=== PATIENT | female | born 1990 | race Hispanic/Latino ===

== ENCOUNTER → 2020-07-15 09:42 | Outpatient (CLI) | payer OTHER, SELFPAY ==
[2020-07-15 10:25] LABS: COVID19 -Nasal RAPID Negative (Negative)
== END ==
PROVIDERS: Family Provider Specialist; Visit Provider Nurse Practitioner Family
DX: Z20.822 Contact with and (suspected) exposure to COVID-19 (principal)
CPT/HCPCS: 87635

== ENCOUNTER → 2020-07-30 14:19 | Outpatient (CLI) | payer OTHER, SELFPAY ==
[2020-07-30 15:40] LABS: COVID19 -Nasal RAPID Negative (Negative)
== END ==
PROVIDERS: Family Provider Specialist; Visit Provider Specialist
DX: Z01.812 Encounter for preprocedural laboratory examination (principal); Z20.822 Contact with and (suspected) exposure to COVID-19
CPT/HCPCS: 87635

== ENCOUNTER 2020-07-31 06:38 | Day surgery (SDC) | payer OTHER, SELFPAY ==
[2020-07-31 07:09] VITALS: BP 126/83; PULSE 88; RESP 16; TEMP 36.6; O2SAT 99
[2020-07-31] MEDS: LACTATED RINGERS 1,000 ML 100 ML IV (07:18)
--- NOTE | 2020-07-31 07:22 | PM.PREOP ---
Pre-operative Note COVID-19 COVID-19 status: Negative Result date/Date tested (Pos, Neg/Pending): 07/30/20 Interval Note History & Physical reviewed/Exam performed by Physician: Yes Changes to H&P: No
--- NOTE | 2020-07-31 08:05 | SUR.OPER ---
Lithotomy on padded OR bed, head on pillow, arms secured on padded arm boards at <90 degrees abduction. Legs secured in padded yellow fins stirrups.
[2020-07-31 08:16] VITALS: BP 157/104; PULSE 100; RESP 16; TEMP 36.4; O2SAT 97
--- NOTE | 2020-07-31 08:20 | P.OP_ITS ---
Operative Date/Time/Diagnoses Date of procedure: 07/31/20 Time of procedure: 08:21 Pre-op diagnosis: Sterilization, removal ParaGard IUD Post-op diagnosis: same Procedure & Clinicians Procedure: Removal of ParaGard IUD and laparoscopic tubal ligation by cauterization Same procedure as scheduled: Yes Indications: Sterilization and removal of IUD Surgeon: Babita Arredondo Click Yes if Unassisted: Yes Anesthesia Type: General Operative Notes Findings: Normal external genitalia, vagina, cervix with ParaGard IUD removed without difficulty by grasping strings. Normal intra-abdominal contents. Hakeem gn appearing left ovarian cyst, normal right ovary uterus and fallopian tubes. No internal hernias. No endometriosis. Closure Type: primary Specimen(s): none sent Estimated Blood Loss (mL): 1 Blood products transfused: none Procedure in detail: Patient was brought to the operating room where she underwent general anesthesia. She was placed in low yellowfin stirrups and prepped and draped in usual sterile fashion. No antibiotics were indicated. Pulsatile stockings were in place and functional. Warming was with blankets. A check system was reviewed with the staff in the room prior to beginning the case. Speculum was placed in the vagina and the IUD strings were grasped and the IUD removed without difficulty. The area of the incisions were injected with half percent Marcaine with epinephrine. An incision was made in the umbilicus with a scalpel and the Verres needle placed in the abdomen. Confirmation of correct placement of the needle was performed by withdrawing on the syringe and then allowing fluid to fall freely through the needle. The abdomen was insufflated to 4 L of CO2. A 5 mm trocar was placed under direct visualization. A 2nd 5 mm trochars were placed in the right lower quadrant under direct visualization after incising the skin. There did not appear to be any damage with placement of the trocars. The right fallopian tube was grasped and cauterized 3 with of the grasper and cut and cut in the middle with the PK generator. Same procedure was performed on the left fallopian tube. Adequate hemostasis was noted. The CO2 was allowed to escape from the abdomen. The trochars were removed. Skin was closed with 4-0 monocryl. The patient went to recovery room in good condition. Complications: none Post-operative Condition: stable Disposition: same day surgery Plan for aftercare: Home when awake and stable
[2020-07-31 08:21] VITALS: BP 152/100; PULSE 96; RESP 11; O2SAT 98
[2020-07-31] MEDS: BUPIVACAINE 0.5% W/ EPI (PF) 30 ML VIAL INJ (08:21)
[2020-07-31 08:28] VITALS: BP 141/89; PULSE 98; RESP 11; O2SAT 96
[2020-07-31] MEDS: KETOROLAC 30 MG/ML VIAL IV (08:34)
[2020-07-31 08:35] VITALS: BP 131/88; PULSE 93; RESP 12; O2SAT 98
[2020-07-31 09:00] VITALS: BP 135/88; PULSE 90; RESP 17; TEMP 36.4; O2SAT 97
== END 2020-07-31 09:12 | disposition home or self-care (01) ==
PROVIDERS: Family Provider Specialist; Referring Provider Specialist; Visit Provider Specialist
PROC: (CPT 58671; principal; 2020-07-31 07:45)
DX: Z30.2 Encounter for sterilization (principal); Z30.432 Encounter for removal of intrauterine contraceptive device; F17.210 Nicotine dependence, cigarettes, uncomplicated; D64.9 Anemia, unspecified; J45.909 Unspecified asthma, uncomplicated
CPT/HCPCS: 58670; 58301; 81025; J0330; J1100; J1885; J2405; J2704; J3010

== ENCOUNTER → 2023-11-21 11:11 | Outpatient (CLI) | payer OTHER, SELFPAY ==
--- NOTE | 2023-11-21 11:12 | DI.RAD.S_ITS ---
PROCEDURE: XR FOOT LT MIN 3V INDICATIONS: Heel pain TECHNIQUE: 3 views of the foot were acquired. COMPARISON: None. FINDINGS: Bones: No fractures or dislocations. No suspicious bony lesions. Calcaneal bone spur. Soft tissues: No tibiotalar joint effusion. Achilles tendon appears normal. IMPRESSION: No acute bony abnormality. Dictated by: Janna Malik MD, PhD on 11/21/2023 at 11:29 Approved by: Janna Malik MD, PhD on 11/21/2023 at 11:30
== END ==
PROVIDERS: Family Provider Specialist; Referring Provider Physician Assistant Surgical; Visit Provider Physician Assistant Surgical
DX: M77.32 Calcaneal spur, left foot (principal); M79.672 Pain in left foot
CPT/HCPCS: 73630

== ENCOUNTER → 2024-02-13 15:50 | Outpatient (CLI) | payer OTHER, SELFPAY ==
[2024-02-13 16:22] LABS: Hemoglobin 13.6 g/dL (12.0-16.0); Mean Corpuscular Hemoglobin 35.7 PG (26-34); Platelet Count 111 X10^3/uL (150-400); Red Blood Cell Count 3.81 X10^6/uL (4.0-5.2); Red Cell Distribution Width 14.9 % (11.6-14.8); White Blood Cell Count 3.7 X10^3/uL (4.5-11.0)
[2024-02-13 16:56] LABS: Alanine Aminotransferase 99 IU/L (<35); Albumin 4.6 g/dL (3.5-5.0); Albumin Globulin Ratio 1.4 (1.0-2.8); Alkaline Phosphatase 72 U/L (38-126); Aspartate Aminotransferase 121 IU/L (14-36); BUN Creatinine Ratio 18.6 (6-22); Bilirubin Total 0.9 mg/dL (0.2-1.3); Blood Urea Nitrogen 11 mg/dL (7-17); Calcium 9.2 mg/dL (8.4-10.2); Carbon Dioxide 23 mmol/L (22-32); Chloride 104 mmol/L (98-107); Cholesterol 318 mg/dL (140-199); Estimated Glomerular Filt Rate > 60 mL/min (>60); Globulin 3.2 g/dL (1.7-4.1); Glucose 87 mg/dL (70-100); HEMOLYSIS < 15 (0-50); Potassium 3.9 mmol/L (3.4-5.1); Sodium 139 mmol/L (137-145); Total Protein 7.8 g/dL (6.3-8.2); Triglycerides 94 mg/dL (35-150)
[2024-02-13 17:02] LABS: Hemoglobin A1C% w Est Avg Glu 4.6 % (4.0-6.0)
[2024-02-13 17:06] LABS: HDL Cholesterol > 220 mg/dL (40-60); LDL Cholesterol Calculated 79 mg/dL (<100)
[2024-02-13 17:34] LABS: TSH w/ Reflex to FT4 1.59 uIU/mL (0.47-4.68)
== END ==
PROVIDERS: Family Provider Specialist; PCP Family Medicine; Referring Provider Family Medicine; Visit Provider Family Medicine
DX: Z00.00 Encounter for general adult medical examination without abnormal findings (principal); F10.10 Alcohol abuse, uncomplicated; F17.200 Nicotine dependence, unspecified, uncomplicated; N92.6 Irregular menstruation, unspecified
CPT/HCPCS: 36415; 80053; 80061; 83036; 84443; 85027

== ENCOUNTER 2024-03-11 14:17 | Inpatient (IN) | payer OTHER, SELFPAY ==
[2024-03-11] VITALS (23 sets, daily range): BP systolic 133–158; BP diastolic 80–96; PULSE 80–129; RESP 12–24; TEMP 36.4–37.1; O2SAT 95–98; BMI 25.7; BMI 26.3
--- NOTE | 2024-03-11 14:23 | ED_ITS ---
HPI - Seizure General Chief Complaint: Seizure Stated Complaint: + seizure/ ? etoh withdrawl Time Seen by Provider: 03/11/24 14:18 History of Present Illness HPI Narrative: Patient is a 33-year-old female with past medical history of alcohol abuse, comes into the ED via EMS from work for evaluation of witnessed tonic-clonic withdrawal seizures. According to EMS and patient she has been on medical leave for the past 3 months states that she has been drinking alcohol including but not limited to beer wine vodka daily for the past 3 months, states that she went back to work today last drink was yesterday. EMS states that she had a witnessed generalized tonic-clonic seizure lasting 2 minutes did receive 5 mg of IM Versed which stopped the seizure. Did give an additional 2.5 mg of IV Versed 30 minutes prior to arrival for withdrawal. At time of initial evaluation patient does appear postictal, however she is moving all 4 extremities spontaneously. Related Data Home Medications Medication Instructions Recorded Confirmed montelukast 10 mg tablet 10 mg PO DAILY 11/30/23 02/13/24 (Jas) Previous Rx's Medication Instructions Recorded albuterol sulfate 90 mcg/actuation 2 puff inhalation Q6H #8.5 grams 12/18/23 aerosol inhaler naltrexone 50 mg tablet 50 mg PO DAILY #30 tabs 03/05/24 Allergies Allergy/AdvReac Type Severity Reaction Status Date / Time No Known Drug Allergies Allergy Verified 02/13/24 15:01 Review of Systems Review of Systems ROS Unobtainable: Unobtainable due to mental status/LOC Patient History Medical History (Updated 03/05/24 @ 09:05 by José Miguel Anglin DO) Alcoholism Elevated LFTs Pancytopenia Depression (~2004) Anxiety (~2004) Scoliosis (~1999) Chronic back pain (~1999) Tobacco dependence Alcohol abuse Asthma, mild intermittent (~1991) Anemia Dichorionic diamniotic twin gestation Surgical History (Updated 01/05/24 @ 19:17 by Dayanna Sarabia) Anesthesia Cyst of breast (~2004) History of tubal ligation (~2021) Status post vacuum-assisted vaginal delivery Status post emergency section (~10/15/16) Family History (Updated 01/05/24 @ 19:23 by Dayanna Sarabia) Father Hypertension Hyperlipidemia Brother Mental health problem Grandmother History of heart disease Hyperlipidemia Hypertension Social History household members: significant other Smoking Status: Current every day smoker Smoking Status: Current every day smoker alcohol intake frequency: holidays/special occasions only Substance Use Type: does not use Exam Narrative Exam Narrative: General: Cooperative, comfortable, well-developed, not in acute distress HEENT: Normocephalic, atraumatic, PERRLA, normal sclera, eyelids normal, Neck: Active full range of motion, atraumatic Chest: Normal to inspection, negative crepitus, no overlying erythema ecchymosis Respiratory: Normal respiratory effort, not in acute respiratory distress, clear to auscultation bilaterally negative cough, wheeze, tachypnea, rhonchi, rales Cardiology: Regular rate rhythm negative gallop, murmur, rubs GI/: Normal to inspection, soft, nonrigid, no tenderness to palpation, exam deferred MSK: Full range of active range of motion of all 4 extremities, atraumatic Skin: No rashes lesions noted Neuro: Patient appearing postictal, is moving all 4 extremities spontaneously, she is able to tell me her name on exam but does appear tired Psych: Cooperative, negative suicidal or homicidal ideations Initial Vital Signs Initial Vital Signs: Vital Signs Pulse Rate 129 H 03/11/24 14:21 Pulse Oximetry 97 03/11/24 14:21 Course Orders Ordered: ED Orders 03/11/24 14:24 CT head/brain wo con Stat EKG-12 Lead Stat 03/11/24 14:27 Urine Drug Screen, Rapid Stat 03/11/24 14:30 CBC Auto Diff [Complete Blood Count AUTO DIFF] Stat CMP [Comprehensive Metabolic Panel] Stat ETOH [Ethanol (ETOH)] Stat Lactate (Lactic Acid) Stat MAG [Magnesium] Stat Phosphorous Stat Test Serum,Qual Stat 03/11/24 14:36 Consult to Dietitian, Adult Routine 03/11/24 15:14 Urinalysis and Microscopic Stat Lorazepam (Lorazepam 2 Mg/Ml Inj) 1 mg IV Q6HR PRN PRN Reason: Anxiety Last Admin: 03/11/24 14:43 Dose: 1 mg Documented By: KM Discontinued Medications Folic Acid (Folic Acid 1 Mg Tablet) 1 mg PO DAILY [facility] Folic Acid (Folic Acid 1 Mg Tablet) 1 mg PO DAILY ONE Stop: 03/11/24 14:43 Multivitamins (Multivitamin 1 Tablet) 1 tab PO DAILY [facility] Multivitamins (Multivitamin 1 Tablet) 1 tab PO DAILY ONE Stop: 03/11/24 14:43 Phenobarbital (Phenobarbital 65 Mg/Ml Vial) 130 mg IV NOW ONE Stop: 03/11/24 15:09 Last Admin: 03/11/24 15:20 Dose: 130 mg Thiamine HCl (Thiamine 100 Mg Tablet) 100 mg PO DAILY RUBEN Stop: 03/15/24 09:01 Thiamine HCl (Thiamine 100 Mg Tablet) 100 mg PO DAILY ONE Stop: 03/11/24 14:43 Vital Signs Vital signs: Vital Signs - 8 hr 03/11/24 14:21 03/11/24 14:22 03/11/24 14:28 Temperature 98.8 F Pulse Rate 129 H 124 H Respiratory Rate 22 Blood Pressure 143/85 H 152/91 H Pulse Oximetry 97 96 Oxygen Delivery Method Room Air 03/11/24 14:28 03/11/24 14:30 03/11/24 14:30 Temperature Pulse Rate 128 H 118 H Respiratory Rate 24 21 Blood Pressure 143/85 H Pulse Oximetry 96 95 Oxygen Delivery Method 03/11/24 14:45 03/11/24 14:46 03/11/24 14:46 Temperature Pulse Rate 111 H 115 H Respiratory Rate 19 Blood Pressure 147/89 H Pulse Oximetry 95 95 Oxygen Delivery Method 03/11/24 14:56 03/11/24 14:56 03/11/24 15:00 Temperature Pulse Rate 104 H 112 H Respiratory Rate Blood Pressure 138/82 Pulse Oximetry 95 95 Oxygen Delivery Method Room Air 03/11/24 15:00 03/11/24 15:15 03/11/24 15:15 Temperature Pulse Rate 107 H Respiratory Rate Blood Pressure 140/85 138/80 Pulse Oximetry 96 Oxygen Delivery Method Room Air MDM - Seizure Differential Diagnosis Differential diagnosis: Likely generalized seizure, new onset seizure and other (alcohol withdrawal seizure) Lab Data 03/11/24 14:30 03/11/24 14:30 Labs: Lab Results 03/11/24 Range/Units 14:30 WBC 4.7 (4.5-11.0) X10^3/uL RBC 3.62 L (4.0-5.2) X10^6/uL Hgb 13.0 (12.0-16.0) g/dL Hct 38.3 (36-46) % MCV 105.8 H (80-100) fL MCH 36.0 H (26-34) PG MCHC 34.0 (30-36) % RDW 13.7 (11.6-14.8) % Plt Count 91 L (150-400) X10^3/uL Neut % (Auto) 62.0 (50-75) % Lymph % (Auto) 26.7 (25-40) % [place] % (Auto) 9.7 (3-14) % Eos % (Auto) 0.7 L (2-4) % Baso % (Auto) 0.9 (0-2) % Neut # (Auto) 2900 (2254-0126) /uL Lymph # (Auto) 1200 (6762-8271) /uL [place] # (Auto) 500 (0-900) /uL Eos # (Auto) 0 (0-450) /uL Baso # (Auto) 0 (0-100) /uL Sodium 131 L (137-145) mmol/L Potassium 3.7 (3.4-5.1) mmol/L Chloride 98 (98-107) mmol/L Carbon Dioxide 13 L (22-32) mmol/L BUN 12 (7-17) mg/dL Creatinine 0.57 (0.52-1.04) mg/dL Estimated GFR > 60 (>60) mL/min BUN/Creatinine Ratio 21.1 (6-22) Glucose 192 H (70-100) mg/dL Lactate 9.6 H* (0.7-2.1) mmol/L Calcium 8.8 (8.4-10.2) mg/dL Phosphorus 3.1 (2.5-4.5) mg/dL Magnesium 1.3 L (1.6-2.3) mg/dL Total Bilirubin 1.2 (0.2-1.3) mg/dL AST 76 H (14-36) IU/L ALT 112 H (<35) IU/L Alkaline Phosphatase 62 (38-126) U/L Total Protein 7.7 (6.3-8.2) g/dL Albumin 4.7 (3.5-5.0) g/dL Globulin 3.0 (1.7-4.1) g/dL Albumin/Globulin Ratio 1.6 (1.0-2.8) Ethyl Alcohol < 10 ( - 10) mg/dL ECG Data Interpretation: EKG interpreted by ED physician shows tachycardia 116 beats per minute, QTC 489, normal axis nonspecific ST changes no STEMI MDM Narrative Medical decision making narrative: Patient 33-year-old female history of alcohol abuse hyperlipidemia brought in for witnessed tonic-clonic withdrawal seizures has been drinking significant amount of alcohol over the past 3 months stopped cold turkey yesterday when she went back to work. Had a witnessed tonic-clonic seizure lasting no more than 2 minutes by EMS was given IV and Versed 5 mg which caused cessation of the seizure. Was given additional 2.5 mg IV prior to arrival for withdrawal. Patient postictal here in the emergency department but no focal deficits. CT scan of the head does not show any acute findings. Patient will require admission to the hospital for detox/alcohol withdrawal given alcohol withdrawal seizure. 1512: Patient re-evaluated CIWA 13, will start patient on IV phenobarbital for alcohol withdrawal 1527: The patient's management plan was discussed Dr. Leonardo, who agrees to admit the patient to their service and assumes care of this patient at this time. Full admission orders will be placed by the primary team. Discharge Plan Departure Prescriptions: No Action montelukast [Singulair] 10 mg tablet 10 mg PO DAILY naltrexone 50 mg tablet 50 mg PO DAILY Qty: 30 11RF albuterol sulfate 90 mcg/actuation HFA aerosol inhaler 2 puff inhalation Q6H Qty: 8.5 11RF Referrals: José Miguel Anglin DO [Primary Care Provider] - Admit Date/Time: 03/11/24 15:25
--- NOTE | 2024-03-11 14:24 | EKG_ITS ---
[address] [address] Test Date: 2024-03-11 Pat Name: Janice Jang Department: [facility] Room: Gender: Female Internal Specialist: jabari : 1990 Requested By: Order Number: [id number] Reading MD: Gonzales Hernández Measurements Intervals Campbell Rate: 116 P: 58 VA: 142 QRS: 54 QRSD: 112 T: 47 QT: 352 QTc: 489 Interpretive Statements Sinus tachycardia Incomplete right bundle branch block Septal infarct , age undetermined Electronically Signed On 03-11-2024 20:42:22 PDT by Gonzales Hernández
--- NOTE | 2024-03-11 14:24 | DI.CT.S_ITS ---
PROCEDURE: CT HEAD/BRAIN WO CON INDICATIONS: seizure TECHNIQUE: Noncontrast 4.5 mm thick angled axial sections acquired from the foramen magnum to the vertex, with coronal and sagittal reformats. For radiation dose reduction, the following was used: automated exposure control, adjustment of mA and/or kV according to patient size. COMPARISON: None. FINDINGS: Image quality: Diagnostic. Moderate mucoperiosteal thickening of the paranasal sinuses predominantly in the bilateral sphenoid sinuses measuring up to 6 mm thickness no air-fluid level to suggest acute sinusitis. Nasal septum is bowed/curved towards the right. CSF spaces: Basal cisterns are patent. No extra-axial fluid collections. Ventricles are normal in size and shape. Brain: No midline shift. No intracranial masses or hemorrhage. Dailey-white matter interface is normal. No CT evidence of intracranial hemorrhage, mass lesion, mass effect, acute or subacute infarct. IMPRESSION: Moderate mucoperiosteal thickening of the bilateral sphenoid sinuses. Nasal septum is bowed/curved towards the right. No CT evidence of intracranial hemorrhage. If symptoms persist or worsen, or there is high clinical suspicion of acute abnormality, MR brain could be performed Dictated by: Guilherme Minaya M.D. on 03/11/2024 at 15:07 Approved by: Guilherme Minaya M.D. on 03/11/2024 at 15:12
[2024-03-11 14:37] LABS: Add Manual Diff / Slide Review NO; Basophils Absolute Auto 0 /uL (0-100); Basophils Percent Auto 0.9 % (0-2); Eosinophils Absolute Auto 0 /uL (0-450); Eosinophils Percent Auto 0.7 % (2-4); Hematocrit 38.3 % (36-46); Lymphocytes Absolute Auto 1200 /uL (1100-4500); Lymphocytes Percent Auto 26.7 % (25-40); Mean Corpuscular Volume 105.8 fL (80-100); Monocytes Absolute Auto 500 /uL (0-900); Monocytes Percent Auto 9.7 % (3-14); Neutrophils Absolute Auto 2900 /uL (1500-7000); Platelet Count 91 X10^3/uL (150-400); Red Blood Cell Count 3.62 X10^6/uL (4.0-5.2); Red Cell Distribution Width 13.7 % (11.6-14.8); White Blood Cell Count 4.7 X10^3/uL (4.5-11.0)
[2024-03-11] MEDS: LORazepam 2 MG/ML INJ 1 MG IV (14:43)
[2024-03-11 14:56] LABS: Ethanol (ETOH) < 10 mg/dL
[2024-03-11 14:57] LABS: Alanine Aminotransferase 112 IU/L (<35); Albumin 4.7 g/dL (3.5-5.0); Albumin Globulin Ratio 1.6 (1.0-2.8); Alkaline Phosphatase 62 U/L (38-126); Aspartate Aminotransferase 76 IU/L (14-36); BUN Creatinine Ratio 21.1 (6-22); Bilirubin Total 1.2 mg/dL (0.2-1.3); Blood Urea Nitrogen 12 mg/dL (7-17); Calcium 8.8 mg/dL (8.4-10.2); Carbon Dioxide 13 mmol/L (22-32); Chloride 98 mmol/L (98-107); Estimated Glomerular Filt Rate > 60 mL/min (>60); Glucose 192 mg/dL (70-100); HEMOLYSIS < 15 (0-50); Lactate (Lactic Acid) 9.6 mmol/L (0.7-2.1); Magnesium 1.3 mg/dL (1.6-2.3); Phosphorous 3.1 mg/dL (2.5-4.5); Potassium 3.7 mmol/L (3.4-5.1); Sodium 131 mmol/L (137-145); Total Protein 7.7 g/dL (6.3-8.2)
[2024-03-11] MEDS: PHENobarbital 65 MG/ML VIAL 130 MG IV (15:20)
[2024-03-11 15:32] LABS: Pregnancy Test Serum,Qual Negative (Negative)
[2024-03-11 16:09] LABS: Reflexed Lactate in 2 Hours Y
[2024-03-11 16:39] LABS: Lactate 2HR (Lactic Acid Rflx) 1.2 mmol/L (0.7-2.1)
--- NOTE | 2024-03-11 17:01 | PC.NURSE ---
This RN checks on patient and notices a contusion on her RIGHT medial foot near the ankle. Pt states it's from my work boots and that they are new and she is breaking them in.
[2024-03-11] MEDS: dexmedeTOMIDine in 0.9 % NaCL 400 MCG/100 ML PLAST..BAG 6.577 MCG IV (17:49)
[2024-03-11] MEDS: SODIUM CHLORIDE 0.9% 1,000 ML 100 ML IV (17:56)
[2024-03-11] MEDS: MAGNESIUM SULFATE 2 GM/50 ML PIGGYBACK IV (17:57)
--- NOTE | 2024-03-11 18:30 | P.HP_ITS ---
History of Present Illness History of Present Illness Date Patient Seen: 03/11/24 Time Patient Seen: 18:20 Chief complaint: + seizure/ ? etoh withdrawl Narrative: This is a 33-year-old female with a past medical history of mild persistent asthma, chronic alcohol use who presented after a witnessed seizure at work. She had recently increased her alcohol intake while being at home for the last 3 months or so. She reports about a 5th of liquor per day for the past 3 months. She then went back to work and stopped drinking. She denies any prior alcohol withdrawal symptoms in the past, and has never been admitted before. She denies any prior seizure history. Remember much of the events at work, but does not remember a 2nd seizure that occurred in the ambulance. Seizure was abated with Versed according to EMS, and the ER provider. Provider also give a dose of phenobarbital, with still elevated CIWA scores. She was admitted for further the ICU. Upon arrival, the patient was still tremulous, and was recommended to start on Precedex infusion. She is awake and alert with no reports of hallucinations. [facility] Medical History Alcoholism Elevated LFTs Pancytopenia Depression (~2004) Anxiety (~2004) Scoliosis (~1999) Chronic back pain (~1999) Tobacco dependence Alcohol abuse Asthma, mild intermittent (~1991) Anemia Dichorionic diamniotic twin gestation Surgical History Anesthesia Cyst of breast (~2004) History of tubal ligation (~2021) Status post vacuum-assisted vaginal delivery Status post emergency section (~10/15/16) Family History Father Hypertension Hyperlipidemia Brother Mental health problem Grandmother History of heart disease Hyperlipidemia Hypertension Social History household members: significant other Smoking Status: Current every day smoker alcohol intake: current Meds Home Medications and Allergies Home Medications Medication Instructions Recorded Confirmed Type montelukast 10 mg tablet 10 mg PO DAILY 11/30/23 03/11/24 History (Jas) albuterol sulfate 90 mcg/actuation 2 puff inhalation Q6H #8.5 grams 12/18/23 03/11/24 Rx aerosol inhaler naltrexone 50 mg tablet 50 mg PO DAILY #30 tabs 03/05/24 03/11/24 Rx Allergies Allergy/AdvReac Type Severity Reaction Status Date / Time No Known Drug Allergies Allergy Verified 03/11/24 15:50 Review of Systems Review of Systems Narrative: All other systems reviewed with the patient and are negative unless otherwise stated. Exam Vital Signs (past 8 hours): - 03/11/24 14:21 03/11/24 14:22 03/11/24 14:28 Temperature 98.8 F Pulse Rate 129 H 124 H Respiratory Rate 22 Blood Pressure 143/85 H 152/91 H Blood Pressure [Left Arm] Pulse Oximetry 97 96 Oxygen Delivery Method Room Air 03/11/24 14:28 03/11/24 14:30 03/11/24 14:30 Temperature Pulse Rate 128 H 118 H Respiratory Rate 24 21 Blood Pressure 143/85 H Blood Pressure [Left Arm] Pulse Oximetry 96 95 Oxygen Delivery Method 03/11/24 14:45 03/11/24 14:46 03/11/24 14:46 Temperature Pulse Rate 111 H 115 H Respiratory Rate 19 Blood Pressure 147/89 H Blood Pressure [Left Arm] Pulse Oximetry 95 95 Oxygen Delivery Method 03/11/24 14:56 03/11/24 14:56 03/11/24 15:00 Temperature Pulse Rate 104 H 112 H Respiratory Rate Blood Pressure 138/82 Blood Pressure [Left Arm] Pulse Oximetry 95 95 Oxygen Delivery Method Room Air 03/11/24 15:00 03/11/24 15:15 03/11/24 15:15 Temperature Pulse Rate 107 H Respiratory Rate Blood Pressure 140/85 138/80 Blood Pressure [Left Arm] Pulse Oximetry 96 Oxygen Delivery Method Room Air 03/11/24 15:29 03/11/24 15:30 03/11/24 15:30 Temperature Pulse Rate 102 H 103 H Respiratory Rate 20 Blood Pressure 141/85 H Blood Pressure [Left Arm] 138/80 Pulse Oximetry 96 96 Oxygen Delivery Method Room Air 03/11/24 15:45 03/11/24 15:45 03/11/24 16:00 Temperature Pulse Rate 110 H Respiratory Rate 13 Blood Pressure 140/86 139/85 Blood Pressure [Left Arm] Pulse Oximetry 96 Oxygen Delivery Method Room Air 03/11/24 16:00 03/11/24 16:15 03/11/24 16:15 Temperature Pulse Rate 99 H 111 H Respiratory Rate 13 14 Blood Pressure 143/88 H Blood Pressure [Left Arm] Pulse Oximetry 97 98 Oxygen Delivery Method Room Air 03/11/24 16:30 03/11/24 16:30 03/11/24 16:45 Temperature Pulse Rate 106 H Respiratory Rate 17 Blood Pressure 149/94 H 158/96 H Blood Pressure [Left Arm] Pulse Oximetry 97 Oxygen Delivery Method 03/11/24 16:45 03/11/24 17:22 03/11/24 17:25 Temperature Pulse Rate 99 H 106 H 98 H Respiratory Rate 14 16 Blood Pressure Blood Pressure [Left Arm] Pulse Oximetry 97 97 97 Oxygen Delivery Method Room Air 03/11/24 17:25 03/11/24 18:20 Temperature Pulse Rate Respiratory Rate Blood Pressure 154/92 H Blood Pressure [Left Arm] Pulse Oximetry Oxygen Delivery Method Room Air Oxygen Delivery Method Room Air Narrative Exam Narrative: General:? Patient is well developed and well nourished, in no distress at this time. HEENT:? Normocephalic, atraumatic, extraocular muscles intact, oral pharynx is clear and mucous membranes are moist. Neck: supple and symmetric, trachea is midline, no cervical adenopathy. Chest:? Normal AP diameter and contour without kyphoscoliosis, no tachypnea, equal chest rise bilaterally. Lungs:? CTA b/l no wheezing rhonchi or rales. Cardio:? Tachycardic with regular rhythm, no murmurs, rubs, or gallops Abdomen: S NT ND. Musculoskeletal:? Muscle strength and tone are equal within normal limits, no deformity. Extremities: No edema or joint effusions. No cyanosis or clubbing. Skin:? Pale,? Warm to touch,dry and intact without rashes, ulcerations or petechiae.? Neuro:? Alert and orientated x3,?no focal deficits, mild tremulousness and tongue fasciculations Psych:? Patient has a well-kept appearance, appropriate affect, mental status attitude thought context and judgment are appropriate for age. Objective ECG Impression: Sinus tachycardia, without evidence of acute ischemia as interpreted by me. Labs 03/11/24 14:30 03/11/24 14:30 Labs: Laboratory Results - last 24 hr 03/11/24 03/11/24 14:30 16:20 WBC 4.7 RBC 3.62 L Hgb 13.0 Hct 38.3 MCV 105.8 H MCH 36.0 H MCHC 34.0 RDW 13.7 Plt Count 91 L Neut % (Auto) 62.0 Lymph % (Auto) 26.7 [place] % (Auto) 9.7 Eos % (Auto) 0.7 L Baso % (Auto) 0.9 Neut # (Auto) 2900 Lymph # (Auto) 1200 [place] # (Auto) 500 Eos # (Auto) 0 Baso # (Auto) 0 Sodium 131 L Potassium 3.7 Chloride 98 Carbon Dioxide 13 L BUN 12 Creatinine 0.57 Estimated GFR > 60 BUN/Creatinine Ratio 21.1 Glucose 192 H Lactate 9.6 H* 1.2 Calcium 8.8 Phosphorus 3.1 Magnesium 1.3 L Total Bilirubin 1.2 AST 76 H ALT 112 H Alkaline Phosphatase 62 Total Protein 7.7 Albumin 4.7 Globulin 3.0 Albumin/Globulin Ratio 1.6 Serum , Qual Negative Ethyl Alcohol < 10 Assessment & Plan Assessment & Plan narrative: 1. Severe alcohol withdrawal with seizure - alcohol withdrawal seizure, initial lactate > 9 now resolved. Fairly severe withdrawal given seizure and this happening within 24 hours of cessation of EtOH. - no prior history of seizure. CT head unremarkable. - alcohol level negative on admit, but has high EtOH use recently - start precedex infusion, 50 mg TID librium, and continue ativan per [facility] protocol. - telemetry - MVI, Folate, Thiamine - seizure precautions ordered. 2. Thrombocytopenia, chronic - acute on chronic, related to chronic Etoh use. No current bleeding, will continue to monitor. 3. Hyponatremia - related to EtOH use, continue to trend with BMP 4. Hypomagnesemia - Continue to follow, repleted with IV mag today. 5. Transaminitis - likely related to EtOH, though not typically in 2:1 fashion. Will add hepatitis serologies. Consider RUQ ultrasound if not improving. 6. Asymptomatic bacteruria - positive UA, patient denies symptoms. Will not treat at this time unless symptoms develop. Code: Full, surrogate is patient's fiancee DVT: Lovenox daily I have utilized all available immediate resources to obtain, update, or review the patient's current medications. Dispo: patient admitted under inpatient status to ICU on phenobarb drip. Likely discharge home after social work evaluation and acute management. Additional history obtained via discussions with the ER provider. These discussions contributed to the creation of the above assessment and plan. I have reviewed patient's presenting documentation, labs, and imaging personally. I spent 35 minutes providing critical care management this patient. This excludes time spent in performing separately billed procedures. Time-Based Coding :: [TOTAL MINUTES] spent with patient and on the chart (including review of chart, obtaining history, exam, reviewing outside data, placing orders, documenting exam and treatment plan, and counseling patient) on [DATE]. Quality VTE Deep Vein Thrombosis/Pulmonary Embolism Present on Admission: No
[2024-03-11 18:32] LABS: Ur Creatinine Normal (Normal); Ur Specific Gravity Normal (Normal); Urine pH Normal (Normal)
[2024-03-11 18:33] LABS: UR Morphine/Opiate cutoff 300 Negative (Negative); Urine Amphetamines Negative (Negative); Urine Barbiturates Positive (Negative); Urine Benzodiazepines Positive (Negative); Urine Cocaine Negative (Negative); Urine MDMA Negative (Negative); Urine Methadone Negative (Negative); Urine Methamphetamines Negative (Negative); Urine Oxycodone Negative (Negative); Urine Phencyclidine Negative (Negative); Urine Tetrahydrocannabinol Negative (Negative); Urine Tricyclic Antidepressant Negative (Negative)
--- NOTE | 2024-03-11 18:38 | PC.NURSE ---
Admit Note Patient to room 228 from ER at 1725. 2 person assist to stand and pivot to bed, very unsteady on feet with tremors to all extremities. CIWA 5. Alert and oriented x4. Oriented to room and to bed/tv/call light controls. Seizure pads in place and suction set up at bedside. Pt able to relay events up to ambulance transport, does not remember having seizure in ambulance. Laceration to tongue, bruising to right medial ankle, left arm. Abrasions to left arm. RA with SpO2 upper 90s. SR in the upper 90s. Bed alarm is on. Precedex gtt infusing per MD order, currently at 0.4 mcg/kg/hr. Call light within reach.
[2024-03-11 18:39] LABS: Appearance Urine UA CLEAR; Bilirubin Urine UA NEGATIVE (NEGATIVE); Color Urine UA YELLOW; Glucose Urine UA NEGATIVE (Negative); Ketones Urine UA 2+ (NEGATIVE); Leukocyte Esterase Urine UA TRACE (NEGATIVE); Nitrite Urine UA NEGATIVE (Negative); Occult Blood Urine UA TRACE-INTACT (Negative); Protein Urine UA 2+ (Negative)
[2024-03-11 18:41] LABS: pH Urine UA 6.5 (4.5-8.0)
[2024-03-11 18:45] LABS: Bacteria Urine Moderate (10-30); Culture Indicated Urine Specimen Cultured; Mucus Urine 1+ (Negative); RBC Urine 1-5/HPF (0-5/HPF); Squamous Epithelial Cell Urine 10-30 /HPF (0-5/HPF); Urine Volume 10mL (spun); WBC Urine 5-10/HPF (0-5/HPF)
[2024-03-11 19:28] LABS: MRSA (Nasal) PCR NOT DETECTED (Not Detect)
[2024-03-11] MEDS: chlordiazePOXIDE 25 MG CAPSULE 50 MG PO (22:17)
[2024-03-12] VITALS (29 sets, daily range): BP systolic 117–160; BP diastolic 76–105; PULSE 66–112; RESP 10–48; TEMP 36.3–36.7; O2SAT 96–99
[2024-03-12 04:49] LABS: Add Manual Diff / Slide Review NO; Basophils Absolute Auto 0 /uL (0-100); Basophils Percent Auto 1.2 % (0-2); Eosinophils Absolute Auto 100 /uL (0-450); Eosinophils Percent Auto 2.1 % (2-4); Hematocrit 38.4 % (36-46); Hemoglobin 13.1 g/dL (12.0-16.0); Lymphocytes Absolute Auto 700 /uL (1100-4500); Lymphocytes Percent Auto 18.5 % (25-40); Mean Corpuscular HGB Conc 34.2 % (30-36); Mean Corpuscular Hemoglobin 35.6 PG (26-34); Mean Corpuscular Volume 104.1 fL (80-100); Monocytes Absolute Auto 400 /uL (0-900); Monocytes Percent Auto 10.9 % (3-14); Neutrophils Absolute Auto 2700 /uL (1500-7000); Neutrophils Percent Auto 67.3 % (50-75); Platelet Count 83 X10^3/uL (150-400); Red Blood Cell Count 3.69 X10^6/uL (4.0-5.2); Red Cell Distribution Width 13.6 % (11.6-14.8)
[2024-03-12] MEDS: dexmedeTOMIDine in 0.9 % NaCL 400 MCG/100 ML PLAST..BAG 6.577 MCG IV (05:04)
[2024-03-12 05:07] LABS: Alanine Aminotransferase 47 IU/L (<35); Albumin Globulin Ratio 1.4 (1.0-2.8); Alkaline Phosphatase 55 U/L (38-126); Aspartate Aminotransferase 65 IU/L (14-36); BUN Creatinine Ratio 20.9 (6-22); Bilirubin Total 1.5 mg/dL (0.2-1.3); Blood Urea Nitrogen 9 mg/dL (7-17); Calcium 8.7 mg/dL (8.4-10.2); Carbon Dioxide 22 mmol/L (22-32); Chloride 99 mmol/L (98-107); Estimated Glomerular Filt Rate > 60 mL/min (>60); Globulin 2.9 g/dL (1.7-4.1); Glucose 98 mg/dL (70-100); HEMOLYSIS < 15 (0-50); Magnesium 2.1 mg/dL (1.6-2.3); Potassium 3.4 mmol/L (3.4-5.1); Sodium 128 mmol/L (137-145); Total Protein 6.9 g/dL (6.3-8.2)
[2024-03-12 05:42] LABS: Hepatitis B Surface Antigen NEGATIVE s/c (NEGATIVE)
[2024-03-12 06:03] LABS: Hep C Virus Ab w/Reflex Quant NEGATIVE s/c (NEGATIVE)
[2024-03-12] MEDS: FOLIC ACID 1 MG TABLET PO (08:31)
[2024-03-12] MEDS: chlordiazePOXIDE 25 MG CAPSULE 50 MG PO ×3 (08:31→20:32)
[2024-03-12] MEDS: ENOXAPARIN 40 MG/0.4 ML SYRINGE SUBCUT (08:31)
[2024-03-12] MEDS: MULTIVITAMIN 1 TABLET 1 TAB PO (08:31)
[2024-03-12] MEDS: SODIUM CHLORIDE 0.9% FLUSH 10 ML IV ×2 (08:32→20:33)
[2024-03-12] MEDS: THIAMINE 100 MG TABLET PO (08:32)
[2024-03-12] MEDS: SODIUM CHLORIDE 0.9% 1,000 ML 125 ML IV (08:54)
--- NOTE | 2024-03-12 15:05 | PM.PN.1 ---
Subjective Subjective Interval history: 33 F admitted with EtOH withdrawal seizure, stable today on precedex and librium. Mild tremulousness today, tolerating a diet. Exam Vital Signs (past 8 hours): - 03/12/24 08:00 Oxygen Delivery Method Room Air Oxygen Delivery Method Room Air Oxygen Flow Rate 0 Narrative Exam Narrative: General:? Patient is well developed and well nourished, in no distress at this time. HEENT:? Normocephalic, atraumatic, extraocular muscles intact, oral pharynx is clear and mucous membranes are moist. Neck: supple and symmetric, trachea is midline, no cervical adenopathy. Chest:? Normal AP diameter and contour without kyphoscoliosis, no tachypnea, equal chest rise bilaterally. Lungs:? CTA b/l no wheezing rhonchi or rales. Cardio:? Tachycardic with regular rhythm, no murmurs, rubs, or gallops Abdomen: S NT ND. Musculoskeletal:? Muscle strength and tone are equal within normal limits, no deformity. Extremities: No edema or joint effusions. No cyanosis or clubbing. Skin:? Pale,? Warm to touch,dry and intact without rashes, ulcerations or petechiae.? Neuro:? Alert and orientated x3,?no focal deficits, mild tremulousness and tongue fasciculations Psych:? Patient has a well-kept appearance, appropriate affect, mental status attitude thought context and judgment are appropriate for age. Objective Labs 03/12/24 04:00 03/12/24 04:00 Labs: Laboratory Results - last 24 hr 03/11/24 03/11/24 03/11/24 14:30 16:20 17:48 WBC RBC Hgb Hct MCV MCH MCHC RDW Plt Count Neut % (Auto) Lymph % (Auto) [place] % (Auto) Eos % (Auto) Baso % (Auto) Neut # (Auto) Lymph # (Auto) [place] # (Auto) Eos # (Auto) Baso # (Auto) Sodium Potassium Chloride Carbon Dioxide BUN Creatinine Estimated GFR BUN/Creatinine Ratio Glucose Lactate 1.2 Calcium Magnesium Total Bilirubin AST ALT Alkaline Phosphatase Total Protein Albumin Globulin Albumin/Globulin Ratio Serum , Qual Negative Urine Color Urine Appearance Urine pH Ur Specific [place] Urine Protein Urine Glucose (UA) Urine Ketones Urine Occult Blood Urine Nitrate Urine Bilirubin Urine Urobilinogen Ur Leukocyte Esterase Urine RBC Urine WBC Ur Squamous Epith Cells Urine Bacteria Urine Mucus Ur Culture Indicated? Vol Urine Centrifuged Nasal Screen MRSA (PCR) Not detected U Opiates 300ng/mL cut Ur Oxycodone Screen Urine Methadone Screen Ur Barbiturates Screen U Tricyclic Antidepress Ur Phencyclidine Scrn Ur Amphetamines Screen U Methamphetamines Scrn Ur MDMA Scrn (Ecstasy) U Benzodiazepines Scrn Urine Cocaine Screen U Marijuana (THC) Screen Urine Specific [place] Ur Creatinine Hep Bs Antigen Hepatitis C Antibody 03/11/24 03/11/24 03/12/24 18:14 18:14 04:00 WBC 4.0 L RBC 3.69 L Hgb 13.1 Hct 38.4 MCV 104.1 H MCH 35.6 H MCHC 34.2 RDW 13.6 Plt Count 83 L Neut % (Auto) 67.3 Lymph % (Auto) 18.5 L [place] % (Auto) 10.9 Eos % (Auto) 2.1 Baso % (Auto) 1.2 Neut # (Auto) 2700 Lymph # (Auto) 700 L [place] # (Auto) 400 Eos # (Auto) 100 Baso # (Auto) 0 Sodium 128 L Potassium 3.4 Chloride 99 Carbon Dioxide 22 BUN 9 Creatinine 0.43 L Estimated GFR > 60 BUN/Creatinine Ratio 20.9 Glucose 98 Lactate Calcium 8.7 Magnesium 2.1 Total Bilirubin 1.5 H AST 65 H ALT 47 H Alkaline Phosphatase 55 Total Protein 6.9 Albumin 4.0 Globulin 2.9 Albumin/Globulin Ratio 1.4 Serum , Qual Urine Color Yellow Urine Appearance Clear Urine pH 6.5 Normal Ur Specific [place] 1.020 Urine Protein 2+ H Urine Glucose (UA) Negative Urine Ketones 2+ H Urine Occult Blood Trace-intact Urine Nitrate Negative Urine Bilirubin Negative Urine Urobilinogen 2.0 H Ur Leukocyte Esterase Trace H Urine RBC 1-5/hpf Urine WBC 5-10/hpf H Ur Squamous Epith Cells 10-30 /hpf H Urine Bacteria Moderate (10-30) H Urine Mucus 1+ H Ur Culture Indicated? Specimen cultured Vol Urine Centrifuged 10ml (spun) Nasal Screen MRSA (PCR) U Opiates 300ng/mL cut Negative Ur Oxycodone Screen Negative Urine Methadone Screen Negative Ur Barbiturates Screen Positive H U Tricyclic Antidepress Negative Ur Phencyclidine Scrn Negative Ur Amphetamines Screen Negative U Methamphetamines Scrn Negative Ur MDMA Scrn (Ecstasy) Negative U Benzodiazepines Scrn Positive H Urine Cocaine Screen Negative U Marijuana (THC) Screen Negative Urine Specific [place] Normal Ur Creatinine Normal Hep Bs Antigen Negative Hepatitis C Antibody Negative PFS Medical History Alcoholism Elevated LFTs Pancytopenia Depression (~2004) Anxiety (~2004) Scoliosis (~1999) Chronic back pain (~1999) Tobacco dependence Alcohol abuse Asthma, mild intermittent (~1991) Anemia Dichorionic diamniotic twin gestation Surgical History Anesthesia Cyst of breast (~2004) History of tubal ligation (~2021) Status post vacuum-assisted vaginal delivery Status post emergency section (~10/15/16) Family History Father Hypertension Hyperlipidemia Brother Mental health problem Grandmother History of heart disease Hyperlipidemia Hypertension Social History household members: significant other Smoking Status: Current every day smoker alcohol intake: current Assessment & Plan Assessment & Plan narrative: 1. Severe alcohol withdrawal with seizure - alcohol withdrawal seizure, initial lactate > 9 now resolved. Severe withdrawal given seizure and this happening within 24 hours of cessation of EtOH. - no prior history of seizure. CT head unremarkable. - alcohol level negative on admit, but has high EtOH use recently - Continue librium 50 mg TID, and continue ativan per CIWA protocol. Will attempt to wean further from precedex. - continue telemetry, consider stopping once precedex is off. - MVI, Folate, Thiamine - seizure precautions ordered. 2. Thrombocytopenia, chronic - acute on chronic, related to chronic Etoh use. No current bleeding, will continue to monitor. 3. Hyponatremia - related to EtOH use, continue to trend with BMP 4. Hypomagnesemia - Continue to follow, repleted with IV mag today. 5. Transaminitis - likely related to EtOH, though not typically in 2:1 fashion. Hepatitis serologies are negative. Will order RUQ as t-bili is slightly trending up at 1.5 today. No abdominal pain. 6. Asymptomatic bacteruria - positive UA, patient denies symptoms. Will not treat at this time unless symptoms develop. Code: Full, surrogate is patient's fiancee DVT: Lovenox daily I have utilized all available immediate resources to obtain, update, or review the patient's current medications. Dispo: patient admitted under inpatient status to ICU on precedex drip. Likely discharge home after social work evaluation and acute management. Additional history obtained via discussions with the ICU bedside RN. These discussions contributed to the creation of the above assessment and plan. I have reviewed patient's presenting documentation, labs, and imaging personally. I spent 32 minutes providing critical care management this patient. This excludes time spent in performing separately billed procedures. Time-Based Coding :: [TOTAL MINUTES] spent with patient and on the chart (including review of chart, obtaining history, exam, reviewing outside data, placing orders, documenting exam and treatment plan, and counseling patient) on [DATE]. Quality VTE Deep Vein Thrombosis/Pulmonary Embolism Present on Admission: No
--- NOTE | 2024-03-12 15:08 | DI.US.S_ITS ---
PROCEDURE: US ABDOMEN LIMITED INDICATIONS: EtOH , RISING BILIRUBIN, AST/ALT. ASSESS LIVER/SPLEEN TECHNIQUE: Real-time scanning was performed of the abdominal and retroperitoneal organs, with image documentation. COMPARISON: None. FINDINGS: Moderate diffuse increased echogenicity of the liver commonly hepatic steatosis or other intrinsic hepatic disease. Liver measures approximately 16.2 cm in CC dimension of the right lobe within normal limits in size. Possible lobulated contour of the liver raises the suspicion for early findings of cirrhotic change. Main portal vein measures approximately 1.3 cm diameter within normal limits in size. Suspected 3 mm anterior wall nondependent gallbladder polyp, without significant posterior acoustic shadowing less likely to represent gallstone. Gallbladder is nondistended without ultrasound evidence of gallbladder wall thickening or pericholecystic fluid. Intrahepatic bile ducts are non-dilated. Extrahepatic bile duct caliber measures 3 mm. Normal is 6-7 mm or less in diameter. Pancreas: Pancreas is not visualized due to overlying bowel gas, per notes. IMPRESSION: Moderate diffuse increased echogenicity of the liver commonly hepatic steatosis or other intrinsic hepatic disease. Possible lobulated contour of the liver raises the suspicion for early findings of cirrhotic change. Suspected 3 mm gallbladder polyp, shadowing less likely to represent gallstone. Gallbladder is nondistended without ultrasound evidence of gallbladder wall thickening or pericholecystic fluid. Dictated by: Guilherme Minaya M.D. on 03/12/2024 at 16:22 Approved by: Guilherme Mianya M.D. on 03/12/2024 at 16:29
--- NOTE | 2024-03-12 16:40 | CM.DPNOTE ---
DCP Note OLIVE PITTER reviewed EMR. Per chart, pt 33yo F here follow ETOH withdrawals. Per chart, pt spent past 3 months of unemployment drinking approximately 5th of liquor daily. Per RN, pt interested in recovery resources, both OP and INPT. Likely need work excuse letter. Per RN, pt not interested in AA, hx of AA and OP rehab. OLIVE PITTER unable to meet with pt today due to triaging needs. Pt remains on precedex and librium. CIWAs of 2-5 throughout day. Per hospitalist in morning rounds, pt likely here another few days. P: CM team will complete comprehensive DCP assessment and f/u for pt preferences on [facility] resources. NORY Man
[2024-03-13] VITALS (9 sets, daily range): BP systolic 110–147; BP diastolic 69–95; PULSE 72–84; RESP 12–57; O2SAT 97–99
[2024-03-13 04:09] LABS: Hepatitis B Core Antibody Negative (Negative)
[2024-03-13 05:25] LABS: Add Manual Diff / Slide Review NO; Basophils Absolute Auto 0 /uL (0-100); Basophils Percent Auto 0.8 % (0-2); Eosinophils Absolute Auto 100 /uL (0-450); Eosinophils Percent Auto 2.8 % (2-4); Hematocrit 39.5 % (36-46); Hemoglobin 13.6 g/dL (12.0-16.0); Lymphocytes Absolute Auto 800 /uL (1100-4500); Lymphocytes Percent Auto 20.9 % (25-40); Mean Corpuscular HGB Conc 34.4 % (30-36); Mean Corpuscular Hemoglobin 35.9 PG (26-34); Mean Corpuscular Volume 104.6 fL (80-100); Monocytes Absolute Auto 500 /uL (0-900); Monocytes Percent Auto 12.8 % (3-14); Neutrophils Absolute Auto 2300 /uL (1500-7000); Neutrophils Percent Auto 62.7 % (50-75); Platelet Count 86 X10^3/uL (150-400); Red Blood Cell Count 3.78 X10^6/uL (4.0-5.2); Red Cell Distribution Width 13.4 % (11.6-14.8); White Blood Cell Count 3.6 X10^3/uL (4.5-11.0)
[2024-03-13 06:06] LABS: Alanine Aminotransferase 36 IU/L (<35); Albumin 3.9 g/dL (3.5-5.0); Albumin Globulin Ratio 1.4 (1.0-2.8); Alkaline Phosphatase 57 U/L (38-126); Aspartate Aminotransferase 53 IU/L (14-36); BUN Creatinine Ratio 18.6 (6-22); Bilirubin Total 0.9 mg/dL (0.2-1.3); Blood Urea Nitrogen 8 mg/dL (7-17); Calcium 9.1 mg/dL (8.4-10.2); Carbon Dioxide 20 mmol/L (22-32); Chloride 103 mmol/L (98-107); Estimated Glomerular Filt Rate > 60 mL/min (>60); Globulin 2.7 g/dL (1.7-4.1); Glucose 80 mg/dL (70-100); HEMOLYSIS < 15 (0-50); Magnesium 1.8 mg/dL (1.6-2.3); Potassium 3.2 mmol/L (3.4-5.1); Sodium 132 mmol/L (137-145); Total Protein 6.6 g/dL (6.3-8.2)
[2024-03-13] MEDS: chlordiazePOXIDE 25 MG CAPSULE 50 MG PO ×2 (08:53→14:11)
[2024-03-13] MEDS: ENOXAPARIN 40 MG/0.4 ML SYRINGE SUBCUT (08:53)
[2024-03-13] MEDS: FOLIC ACID 1 MG TABLET PO (08:53)
[2024-03-13] MEDS: MULTIVITAMIN 1 TABLET 1 TAB PO (08:53)
[2024-03-13] MEDS: SODIUM CHLORIDE 0.9% FLUSH 10 ML IV (08:54)
[2024-03-13] MEDS: THIAMINE 100 MG TABLET PO (08:54)
--- NOTE | 2024-03-13 11:15 | PM.DS.1 ---
History of Present Illness History of Present Illness Date Patient Seen: 03/13/24 Time Patient Seen: 10:40 Chief complaint: + seizure/ ? etoh withdrawl Narrative: This is a 33-year-old female with a past medical history of mild persistent asthma, chronic alcohol use who presented after a witnessed seizure at work. She had recently increased her alcohol intake while being at home for the last 3 months or so. She reports about a 5th of liquor per day for the past 3 months. She then went back to work and stopped drinking. She denies any prior alcohol withdrawal symptoms in the past, and has never been admitted before. She denies any prior seizure history. Remember much of the events at work, but does not remember a 2nd seizure that occurred in the ambulance. Seizure was abated with Versed according to EMS, and the ER provider. Provider also give a dose of phenobarbital, with still elevated CIWA scores. She was admitted for further the ICU. Upon arrival, the patient was still tremulous, and was recommended to start on Precedex infusion. She is awake and alert with no reports of hallucinations. Discharge Providers Provider Date of admission: 03/11/24 15:25 Discharge Date: 03/13/24 Primary care physician: José Miguel Anglin DO Consults: 03/11/24 14:36 Consult to Dietitian, Adult Routine Comment: Reason For Exam: alchol abuse Discharge provider: Gonzales Hernández DO Summary Hospital Course Discharge Diagnosis: 1. Severe alcohol withdrawal with seizure 2. Thrombocytopenia, chronic 3. Hyponatremia 4. Hypomagnesemia 5. Transaminitis 6. Asymptomatic bacteruria Hospital Course: This is a 33-year-old female with a past medical history of alcohol use who was admitted after an apparent alcohol withdrawal seizure. Given her presentation with seizure within 24 hours of cessation of alcohol, the patient was admitted to the ICU on Precedex infusion and Librium. The patient did quite well with this therapy, with minimal tremors and tongue fasciculations and no of delirium. She had no further seizure activity. Precedex was able to be weaned, and she was monitored off of this for multiple hours, and she eats well enough to discharge home at that time. She had no significant tremors or ongoing with symptoms. She was discharged on a Librium taper over the next 2 days and then advised to start taking the naltrexone that she had been previously described after completing her taper. Initial evaluation in the emergency room did show a positive UA, though the patient was asymptomatic and this is considered an asymptomatic bacteriuria and was not treated. No other changes to her chronic medication the time of discharge. She was seen by social work and provided with alcohol cessation resources. Time Spent with Patient Time spent: Greater than 30 minutes Exam Vital Signs (past 8 hours): - 03/13/24 04:00 03/13/24 04:00 03/13/24 04:00 Pulse Rate 79 Respiratory Rate 17 Blood Pressure 123/81 Pulse Oximetry 98 Oxygen Delivery Method Room Air 03/13/24 05:00 03/13/24 05:00 03/13/24 06:00 Pulse Rate 73 Respiratory Rate 15 Blood Pressure 125/75 129/82 Pulse Oximetry 98 Oxygen Delivery Method 03/13/24 06:00 03/13/24 07:00 03/13/24 07:00 Pulse Rate 72 84 Respiratory Rate 13 18 Blood Pressure 147/95 H Pulse Oximetry 98 98 Oxygen Delivery Method 03/13/24 08:00 03/13/24 08:00 03/13/24 08:00 Pulse Rate 76 Respiratory Rate 14 Blood Pressure 110/69 Pulse Oximetry 98 Oxygen Delivery Method Room Air Oxygen Delivery Method Room Air Oxygen Flow Rate 0 Narrative Exam Narrative: General:? Patient is well developed and well nourished, in no distress at this time. HEENT:? Normocephalic, atraumatic, extraocular muscles intact, oral pharynx is clear and mucous membranes are moist. Neck: supple and symmetric, trachea is midline, no cervical adenopathy. Chest:? Normal AP diameter and contour without kyphoscoliosis, no tachypnea, equal chest rise bilaterally. Extremities: No edema or joint effusions. Neuro:? Alert and orientated x3,?no focal deficits, no tremulousness nor tongue fasciculations Psych:? Patient has a well-kept appearance, appropriate affect, mental status attitude thought context and judgment are appropriate for age. Objective Labs 03/13/24 04:10 03/13/24 04:10 Labs: Laboratory Results - last 24 hr 03/12/24 03/13/24 04:00 04:10 WBC 3.6 L RBC 3.78 L Hgb 13.6 Hct 39.5 MCV 104.6 H MCH 35.9 H MCHC 34.4 RDW 13.4 Plt Count 86 L Neut % (Auto) 62.7 Lymph % (Auto) 20.9 L [place] % (Auto) 12.8 Eos % (Auto) 2.8 Baso % (Auto) 0.8 Neut # (Auto) 2300 Lymph # (Auto) 800 L [place] # (Auto) 500 Eos # (Auto) 100 Baso # (Auto) 0 Sodium 132 L Potassium 3.2 L Chloride 103 Carbon Dioxide 20 L BUN 8 Creatinine 0.43 L Estimated GFR > 60 BUN/Creatinine Ratio 18.6 Glucose 80 Calcium 9.1 Magnesium 1.8 Total Bilirubin 0.9 AST 53 H ALT 36 H Alkaline Phosphatase 57 Total Protein 6.6 Albumin 3.9 Globulin 2.7 Albumin/Globulin Ratio 1.4 Hep B Core Total Ab Negative [facility] Medical History Alcoholism Elevated LFTs Pancytopenia Depression (~2004) Anxiety (~2004) Scoliosis (~1999) Chronic back pain (~1999) Tobacco dependence Alcohol abuse Asthma, mild intermittent (~1991) Anemia Dichorionic diamniotic twin gestation Surgical History Anesthesia Cyst of breast (~2004) History of tubal ligation (~2021) Status post vacuum-assisted vaginal delivery Status post emergency section (~10/15/16) Family History Father Hypertension Hyperlipidemia Brother Mental health problem Grandmother History of heart disease Hyperlipidemia Hypertension Social History household members: significant other and children Smoking Status: Current every day smoker alcohol intake: current Discharge Plan Discharge Plan Patient Disposition: Home Provider Discharge Comment: You were admitted to the hospital with alcohol withdrawal seizure. Improved with medications. I have sent a medication to help you through your withdrawal. Start neltrexone after completing taper of librium. Discharge orders & Medications Prescriptions: New chlordiazepoxide HCl 25 mg capsule See Rx Instructions .ROUTE .COMPLEX Qty: 11 0RF Rx Instructions: Take 50 mg (2 tabs) TID for 4 doses, then 25 mg TID for 1 day, then stop. Continued montelukast [Singulair] 10 mg tablet 10 mg PO DAILY naltrexone 50 mg tablet 50 mg PO DAILY Qty: 30 11RF Patient Comments: just prescribed, not taken yet albuterol sulfate 90 mcg/actuation HFA aerosol inhaler 2 puff inhalation Q6H Qty: 8.5 11RF Follow up/Referrals: José Miguel Anglin DO [Primary Care Provider] - Diet/Activity/Treatments Diet: Diet as Tolerated and Regular Activity: As tolerated, no restrictions Visit Report/Discharge Packet Instructions: DI for Drug or Alcohol Withdrawal, Chlordiazepoxide Stand Alone Forms: Patient Portal/API, Stroke Signs & Symptoms Discharge Data Primary Care Provider: José Miguel Anglin Quality VTE Deep Vein Thrombosis/Pulmonary Embolism Present on Admission: No
[2024-03-13] MEDS: POTASSIUM CHLORIDE 20 MEQ TAB 40 MEQ PO (14:11)
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
--- NOTE | 2024-03-13 14:37 | CM.DANOTE ---
Discharge Planning/Care Management CM Discharge Assessment Start: 03/13/24 14:33 Freq: Status: Active Protocol: Document 03/13/24 14:33 LEN (Rec: 03/13/24 14:37 LEN [id number]) Discharge Planning Assessment Assigned Research Mechanic NORY Mike DPOA/Assigned Designee Name Jaron Fernandez Contact Information [phone] Advance Directives? No History Provided By Patient,Medical Record Prior Living Arrangements House Household Members significant other,children Type of transporation used prior to Drives own vehicle admit Independent with ADL's Yes Is patient alert and oriented? Yes Barriers to Discharge No Comment Home w/family, outpatient [facility] resources offered. Discharge Plan Home Transportation Arrangement SO/friend Referrals Initiated None needed See CLAM SHUCKER Note for [facility] assessment and addtl detail NORY King
[2024-03-14 04:13] LABS: Hepatitis B Surf Ab Qualitativ Non Reactive (.)
== END 2024-03-13 14:41 | disposition home or self-care (01) | DRG 897 ==
LOC: ED 14:31 → AC 15:27 → ICU 17:18
PROVIDERS: Admitting Provider Internal Medicine; Emergency Provider Student in an Organized Health Care Education/Training Program; Family Provider Specialist; PCP Family Medicine; Visit Provider Internal Medicine
DX: F10.239 Alcohol dependence with withdrawal, unspecified (principal); E87.1 Hypo-osmolality and hyponatremia; D69.6 Thrombocytopenia, unspecified; E83.42 Hypomagnesemia; R74.01 Elevation of levels of liver transaminase levels; R82.71 Bacteriuria; J45.909 Unspecified asthma, uncomplicated; F17.210 Nicotine dependence, cigarettes, uncomplicated; Y90.0 Blood alcohol level of less than 20 mg/100 ml
CPT/HCPCS: 36415; 70450; 76705; 80053; 80305; 80320; 81001; 83605; 83735; 84100; 84703; 85025; 86704; 86706; 86803; 87086; 87340; 87797; 93005; 96374; 96375; 99284; 99285; J1650; J2060; J2560; J3475